=== PATIENT | male | born 1990 | race African-American/Black ===

== ENCOUNTER 2024-07-07 08:32 | Emergency (ER) | payer SELFPAY ==
[~2024-07-07] VITALS: Ht 175.3 cm; Wt 100.7 kg
[2024-07-07 08:54] VITALS: BP 127/70; PULSE 93; RESP 18; TEMP 98.1; O2SAT 97
[2024-07-07 09:42] LABS: APPEARANCE,URINE SL CLOUDY (CLEAR); BILIRUBIN,URINE NEGATIVE (NEGATIVE); BLOOD, URINE NEGATIVE (NEGATIVE); COLOR,URINE YELLOW (YELLOW); LEUKOCYTE ESTERASE ,URINE 1+ (NEGATIVE); NITRITE, URINE NEGATIVE (NEGATIVE); PROTEIN,URINE NEGATIVE (NEGATIVE); UGLUCOSE NEGATIVE (NEGATIVE)
[2024-07-07 09:55] LABS: BACTERIA,URINE FEW /HPF (None Seen); RBC,URINE 0-5 /HPF (0-5); SQUAMOUS EPITHELIAL CELL,UR 0-3 (FEW) /LPF (0-3 (FEW)); WBC,URINE 16-25 (MOD) /HPF (0-5)
[2024-07-07 09:56] LABS: AMPHETAMINE, URINE NEGATIVE ng/ml (NEG <=1000); BARBITURATE, URINE NEGATIVE ng/ml (NEG <=200); BENZODIAZEPINE, URINE NEGATIVE ng/mL (NEG <=200); CANNABINOID, URINE NEGATIVE ng/mL (NEG <=50); COCAINE, URINE NEGATIVE ng/mL (NEG <=300); OPIATE, URINE NEGATIVE ng/mL (NEG <=2000); PHENCYCLIDINE SCREEN,URINE NEGATIVE ng/mL (NEG <=25)
--- NOTE | 2024-07-07 10:11 | NUR ---
DR. ALVAREZ IN TO SEE PT FOR EXAM
--- NOTE | 2024-07-07 10:11 | NUR ---
PT AMB TO BED 9
[2024-07-07] MEDS ORDERED: DOXY-690 PO (10:17)
--- NOTE | 2024-07-07 10:18 | NUR ---
PT AMB TO FRONT LOBBY
[2024-07-07] MEDS ORDERED: LIDOCAINE MPF 1% 5 ML ONE (10:19)
[2024-07-07] MEDS ORDERED: cefTRIAXone 500 MG VIAL ONE (10:19)
[2024-07-07] MEDS ORDERED: CIPR500T4 PO (10:20)
[2024-07-07] MEDS: cefTRIAXone 500 MG in LIDOCAINE MPF 1% 1 ML IM ONE (10:29)
--- NOTE | 2024-07-07 10:31 | NUR ---
Patient discharged with v/s stable. Written and verbal after care instructions given and explained. Patient alert, oriented and verbalized understanding of instructions. Ambulatory with steady gait. All questions addressed prior to discharge. ID band removed. Patient advised to follow up with PMD. Rx of CIPRO & VIBRAMYCIN given. Patient educated on indication of medication including possible reaction and side effects. Opportunity to ask questions provided and answered.
--- NOTE | 2024-07-07 20:13 | NUR ---
RESULT ANNMARIE'Sonu FROM LAB. DR. NELSON LOOKED OVER RESULTS AND PT WAS TREATED AND GIVEN APPROPRIATE RX.
== END 2024-07-07 10:31 | disposition home or self-care (01) ==
LOC: MED 08:32
DX: N39.0 Urinary tract infection, site not specified (principal); Z20.2 Contact with and (suspected) exposure to infections with a predominantly sexual mode of transmission; Z79.2 Long term (current) use of antibiotics
CPT/HCPCS: 80305; 81001; 87086; 87491; 96372; 99283; J0696; J2001